=== PATIENT | male | born 1970 | race American Indian/Alaskan Native ===

== ENCOUNTER 2024-03-17 06:33 | Day surgery (SDC) | payer MEDICARE, MEDICAID, SELFPAY ==
--- NOTE | 2024-03-16 07:00 | EKG_ITS ---
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
[2024-03-16 14:31] VITALS: BMI 31.4
[2024-03-16 16:43] LABS: Basophils # (Auto) 0.1 Thou/mm3 (0.0-0.2); Basophils % (Auto) 1 % (0-2.5); Eosinophils # (Auto) 0.1 Thou/mm3 (0.0-0.5); Eosinophils % (Auto) 1 % (0-10); Hematocrit 42.4 % (41.0-53.0); Hemoglobin 14.8 g/dL (13.5-16.0); Immature Granulocytes % (Auto) 1 % (0-0); Immature Granulocytes Auto 0.05 Thou/mm3 (0.00-0.00); Lymphocytes # (Auto) 1.7 Thou/mm3 (1.0-4.8); Lymphocytes % (Auto) 16 % (10-50); Mean Corpuscular HGB Conc 34.9 g/dl (31.0-37.0); Mean Corpuscular Hemoglobin 30.8 pg (25.0-35.0); Mean Corpuscular Volume 88 fL (80-100); Monocytes # (Auto) 0.9 Thou/mm3 (0.0-0.8); Monocytes % (Auto) 8 % (0-12); Neutrophils # (Auto) 7.9 Thou/mm3 (1.8-7.7); Neutrophils % (Auto) 74 % (37-80); Nucleated Red Blood Cell % 0 /100 WBC (0); Platelet Count 256 Thou/mm3 (140-440); RDW Standard Deviation 41.5 fL (35.1-43.9); Red Blood Count 4.81 Miln/mm3 (4.50-5.90); White Blood Count 10.7 Thou/mm3 (3.8-10.6)
[2024-03-16 17:03] LABS: Partial Thromboplastin Time 27.6 Seconds (22.0-36.0); Prothrombin Time 10.8 Seconds (9.0-12.2)
[2024-03-16 17:14] LABS: Anion Gap 9 (7-16); BUN/Creatinine Ratio 15 Ratio (12-20); Blood Urea Nitrogen 23 mg/dL (9-23); Calcium 9.5 mg/dL (8.3-10.6); Carbon Dioxide 25.5 mMol/L (20.0-31.0); Chloride 104 mMol/L (98-107); Creatinine (Component) 1.5 mg/dL (0.6-1.3); Estimated Creatinine Clearance 66.1 mL/min (>60); Glucose 161 mg/dL (74-106); Osmolality,Calculated 282 (275-295); Potassium 4.6 mMol/L (3.4-5.1); Sodium 138 mMol/L (136-145); eGFR 56 See Note
[2024-03-17] VITALS (12 sets, daily range): BP systolic 95–146; BP diastolic 65–91; PULSE 68–75; RESP 14–18; TEMP 36.7–36.8; O2SAT 94–97; BMI 30.9
[2024-03-17] MEDS: DIAZEPAM 5 MG TABLET PO (07:20)
[2024-03-17] MEDS: SODIUM CHLORIDE 0.45 % 500 ML 100 ML IV (07:47)
--- NOTE | 2024-03-17 08:43 | ESOP_ITS ---
Cardiac Cath Procedure Procedure Narrative Date of the procedure 03/17/2024 Title of the procedure 1. Left heart catheterization 2. Left coronary angiogram 3. Right coronary angiogram 4. Left ventriculogram 5. Conscious sedation 6. Radiographic interpretation supervision 7. Ultrasound guidance for Right radial access Indication for the procedure This is a 53-year-old gentleman with hypertension diabetes hyperlipidemia obesity Patient was complaining of atypical chest pain Patient did undergo Cardiolite scan which was abnormal Cardiac catheterization cholangiogram recommended Procedure This is done in the cardiac lab under continuous electrocardiographic monitoring Intermittent blood pressure monitoring right radial arterial access obtained using modified Seldinger technique 6 Bulgarian radial sheath was placed under ultrasound guidence TIG catheter was used for selective injection of the Left coronary artery TIG cather was used for selective injection of the Right coroanry artery TIG cather was used for LV gram Findings Hemodynamics Left ventricular systolic function is 55% Left ventricular end-diastolic pressure is 18 mmHg Gradient across the aortic valve is 0 mm gradient Coronary anatomy Right normal dominance Left main coronary artery is Left anterior descending artery is distally 90% lesion Diagonal vessel is luminal regularities Left circumflex artery shows luminal irregularities Obtuse marginal vessel shows 90% lesion Right coronary artery proximally 70% lesion Posterior descending artery is luminal irregularities Conclusion Significant three-vessel disease in a diabetic patient Recommendation Cardiothoracic surgical consultation
== END 2024-03-17 11:50 | disposition home or self-care (01) ==
PROVIDERS: PCP Family Medicine; Referring Provider Internal Medicine; Visit Provider Internal Medicine
PROC: (CPT 93458; principal; 2024-03-17 07:30)
DX: I25.118 Atherosclerotic heart disease of native coronary artery with other forms of angina pectoris (principal); E11.9 Type 2 diabetes mellitus without complications; E66.9 Obesity, unspecified; E78.5 Hyperlipidemia, unspecified; I10 Essential (primary) hypertension; Z68.30 Body mass index [BMI] 30.0-30.9, adult
CPT/HCPCS: 93458; 36415; 80048; 85025; 85610; 85730; 93005; 99152; 99153; A4216; A4649; C1769; C1887; C1894; J0171; J0461; J0583; J1643; J2250; J2310; J2371; J3010; J3490; J7030; Q9967; A9270; J2305

== ENCOUNTER 2024-05-26 00:17 | Emergency (ER) | payer MEDICARE, MEDICAID, SELFPAY ==
[2024-05-26] VITALS (7 sets, daily range): BP systolic 144–181; BP diastolic 80–101; PULSE 95–99; RESP 17–98; TEMP 36.7–37.2; O2SAT 96–100; BMI 16.7
--- NOTE | 2024-05-26 00:20 | EKG_ITS ---
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: : 1970 Requested By: ED Temporary Provider Order Number: [id number] Reading MD: ED Temporary Provider Measurements Intervals [place] Rate: 93 P: 20 MA: 187 QRS: -42 QRSD: 111 T: 103 QT: 355 QTc: 443 Interpretive Statements SINUS RHYTHM POSSIBLE LEFT ATRIAL ENLARGEMENT [-0.1mV P-WAVE IN V1/V2] LEFT AXIS DEVIATION [QRS AXIS < -30] LATERAL MYOCARDIAL INFARCTION , OF INDETERMINATE AGE [40+ ms Q WAVE AND/OR ST/T ABNORMALITY IN I/aVL/V5/V6] Compared to ECG 03/16/2024 15:51:23 Myocardial infarct finding now present Intraventricular conduction delay no longer present /store/S0/[id number]/[id number].pdf
--- NOTE | 2024-05-26 00:39 | XR_ITS ---
Examination: PA chest single view TECHNIQUE: Upright PA chest single view Exam date and time: May 26, 2024 0112 hours Comparison June 15, 2023 INDICATIONS: Coughing shortness of breath today. FINDINGS: Bibasilar pneumonia, significant left base Normal heart size CABG Suspicious for small to moderate left pleural effusion IMPRESSION: Bibasilar pneumonia, significant left base
--- NOTE | 2024-05-26 00:40 | PD.EDRME ---
Rapid Medical Screening Exam RME Arrival date/time: 05/26/24 00:17 54M with history of recent CABG and DM (LLE amputation) presents to ED with several days of cough, CP, and SOB, as well as some N/V. Chief Complaint: Nausea/Vomiting/Diarrhea Vital signs: Vital Signs Temperature 98.6 F 05/26/24 00:33 Pulse Rate 97 05/26/24 00:33 Respiratory Rate 19 05/26/24 00:33 Blood Pressure 144/80 H 05/26/24 00:33 Pulse Oximetry (%) 98 05/26/24 00:33 Oxygen Delivery Method Room Air 05/26/24 00:33
[2024-05-26 01:13] LABS: Basophils # (Auto) 0.1 Thou/mm3 (0.0-0.2); Basophils % (Auto) 1 % (0-2.5); Eosinophils # (Auto) 0.1 Thou/mm3 (0.0-0.5); Eosinophils % (Auto) 1 % (0-10); Hematocrit 36.4 % (41.0-53.0); Hemoglobin 11.8 g/dL (13.5-16.0); Immature Granulocytes % (Auto) 0 % (0-0); Immature Granulocytes Auto 0.02 Thou/mm3 (0.00-0.00); Lymphocytes # (Auto) 1.4 Thou/mm3 (1.0-4.8); Lymphocytes % (Auto) 14 % (10-50); Mean Corpuscular HGB Conc 32.4 g/dl (31.0-37.0); Mean Corpuscular Volume 93 fL (80-100); Monocytes # (Auto) 0.9 Thou/mm3 (0.0-0.8); Monocytes % (Auto) 9 % (0-12); Neutrophils # (Auto) 7.4 Thou/mm3 (1.8-7.7); Neutrophils % (Auto) 76 % (37-80); Nucleated Red Blood Cell % 0 /100 WBC (0); Platelet Count 450 Thou/mm3 (140-440); RDW Standard Deviation 52.3 fL (35.1-43.9); Red Blood Count 3.93 Miln/mm3 (4.50-5.90); White Blood Count 9.7 Thou/mm3 (3.8-10.6)
[2024-05-26 01:47] LABS: Alanine Aminotransferase 10 U/L (10-49); Albumin, Serum 4.4 gm/dL (3.5-5.0); Albumin/Globulin Ratio 1.2 (1.2-2.2); Alkaline Phosphatase 129 U/L (46-116); Anion Gap 10 (7-16); Aspartate Amino Transferase 20 U/L (0-34); BUN/Creatinine Ratio 12 Ratio (12-20); Bilirubin,Total 0.7 mg/dL (0.3-1.2); Blood Urea Nitrogen 19 mg/dL (9-23); Carbon Dioxide 20.5 mMol/L (20.0-31.0); Chloride 108 mMol/L (98-107); Creatinine (Component) 1.6 mg/dL (0.6-1.3); Estimated Creatinine Clearance 38.7 mL/min (>60); Globulin 3.8 gm/dL (2.3-3.5); Glucose 88 mg/dL (74-106); Osmolality,Calculated 276 (275-295); Potassium 4.5 mMol/L (3.4-5.1); Procalcitonin 0.05 ng/ml (0.0-0.49); Sodium 138 mMol/L (136-145); Total Protein 8.2 gm/dL (5.7-8.2); eGFR 51 See Note
[2024-05-26 01:51] LABS: Troponin I 0.125 ng/mL (0.0-0.045)
--- NOTE | 2024-05-26 03:27 | XR_ITS ---
Examination: CTA chest with intravenous contrast 2-D reconstructions 3-D reconstructions, vascular Date and time of exam: May 26, 2024 0502 hours INDICATIONS: Shortness of breath vomiting today, cardiac bypass surgery May 09, 2024, wide mediastinum on chest x-ray CTDI: vol (mGy) 13.3 DLP: (mGycm) 514 Technique: Multiple axial sections of the thorax have been obtained. 3 mm slice thickness, from below the hemidiaphragms to above the apices of the lungs. Mediastinal and lung density settings have been obtained. 2-D sagittal and coronal reconstructions. 3-D angiographic renderings, 3-D volume renderings, 3D post processing, vascular maximum intensity projections obtained. Contrast administered is 100 cc Isovue 370. Low dose protocols were performed. One or more of the following dose reduction techniques were used; automated exposure control, adjustment of the mA and/or KV according to patient size, use of iterative reconstruction technique. Findings: Postoperative change in the anterior mediastinum No thoracic aortic aneurysm dilatation Pulmonary artery segments are not enlarged No pulmonary artery filling defects 8 mm pulmonary nodule right mid lung image 65 Pneumonia left base with a mild to moderate left pleural fluid Fluid distended esophagus with thickening of the lower wall of the esophagus No focal liver or splenic lesions No gallstones. Perinephric stranding Abdominal aorta intact IMPRESSION: Postoperative changes in the anterior mediastinum No thoracic aortic aneurysmal dilatation Negative for pulmonary artery emboli 8 mm pulmonary nodule right upper lobe Pneumonia and atelectasis left base with mild to moderate left pleural fluid Fluid distended esophagus with thickening of the lower wall of the esophagus
[2024-05-26 03:48] LABS: INR 1.1 (0.9-1.3); Partial Thromboplastin Time 31.4 Seconds (22.0-36.0); Prothrombin Time 11.8 Seconds (9.0-12.2)
[2024-05-26 04:24] LABS: Magnesium 1.8 mg/dL (1.6-2.6)
[2024-05-26 04:25] LABS: B-Type Natriuretic Peptide 280 pg/mL (0-100)
--- NOTE | 2024-05-26 04:51 | PD.EDNV ---
Nausea/Vomit./Diarrhea-RME/HPI General Chief complaint: Nausea/Vomiting/Diarrhea Stated complaint: SOB/ VOMITING/ BYPASS SURGERY 05/09 Arrival date/time: 05/26/24 00:17 RME / HPI RME / HPI Narrative: 05/26/24 00:17 54M with history of recent CABG and DM (LLE amputation) presents to ED with several days of cough, CP, and SOB, as well as some N/V. Dr. Mcgraw?s Main ED Evaluation: 54yo male with a [facility] of [facility] ([facility]), DM, HTN presents to the ED for a chief complaint of N/V. Patient states he's been having heartburn that radiates to his back, a cough for the last 1 week, N/V, and chest pain. He denies any fever, chills or any other associated symptoms. No known allergies. Related Data Home Medications ?Medication ?Instructions ?Recorded ?Confirmed atorvastatin 20 mg tablet 40 mg PO QDAY 03/17/24 05/26/24 empagliflozin 25 mg tablet 25 mg PO QDAY 03/17/24 05/26/24 (Jardiance) furosemide 20 mg tablet 20 mg PO QDAY 03/17/24 05/26/24 lisinopril 10 mg tablet 40 mg PO QDAY 03/17/24 05/26/24 metformin 500 mg tablet 500 mg PO QDAY 03/17/24 05/26/24 Held on 03/17/24. Instructions: Resume on 03/20/24. hold metformin. may resume 03/20/24 ascorbic acid (vitamin C) 500 mg 1 g PO QDAY 05/26/24 05/26/24 tablet (Vitamin C) clopidogrel 75 mg tablet 75 mg PO HS 05/26/24 05/26/24 ferrous sulfate 325 mg (65 mg 325 mg PO BID 05/26/24 05/26/24 iron) tablet (FeroSul) folic acid 1 mg tablet 1 mg PO QDAY 05/26/24 05/26/24 midodrine 10 mg tablet 10 mg PO TID 05/26/24 05/26/24 tramadol 50 mg tablet 50 mg PO HS 05/26/24 05/26/24 Previous Rx's ?Medication ?Instructions ?Recorded flash glucose scanning reader #1 ea 03/17/24 (FreeStyle Yolanda 2 [place]) flash glucose sensor (FreeStyle #1 ea 03/17/24 Yolanda 2 Sensor kit) pen needle, diabetic 29 gauge #100 ea 03/17/24 Allergies Allergy/AdvReac Type Severity Reaction Status Date / Time No Known Allergies Allergy Verified 05/22/23 15:18 Review of Systems Review of Systems Systems Reviewed: All systems reviewed, normal except as documented Past Medical History Past Medical History NEUROLOGIC: Positive Neurological Disorders and Peripheral Neuropathy; Negative Seizures CARDIAC: Positive Hypercholesterolemia and Hypertension; Negative Cardiac Disorders, Congestive Heart Failure, Edema or Cellulitis RESPIRATORY: Positive Pneumonia (05/2023); Negative Chronic Obstructive Pulmonary Disease (COPD), Asthma, Tuberculosis or Sleep Apnea GASTROINTESTINAL: Negative Gastrointestinal Disorders or Hepatitis GENITOURINARY: Negative Genitourinary Disorders or Renal Disease REPRODUCTIVE: Negative Breast Cancer MUSCULOSKELETAL: Positive Musculoskeletal Disorders and Fractures (right ankle fractures, screws intact) ENT: Positive Cataracts ENDOCRINE: Positive Endocrine Disorders and Diabetes Mellitus Type 2; Negative Diabetes Mellitus Type 1 HEMATOLOGIC: Negative Blood Disorders or Sickle Cell Disease OTHER HISTORY: Positive Shingles, Falls and Chicken Pox; Negative Hospitalization, Autoimmune Disease, Blood Transfusions, Blood Transfusion Reaction, Anesthesia Reactions, Chemotherapy, Radiation Therapy, MRSA, Measles, Mumps, Clostridium Difficile, Cancer or Breast Cancer Family History FAMILY HISTORY: Positive Family Cardiac Disorders, Family Gastrointestinal Problems and Family Surgery; Negative Family Psychiatric Problems, Family Respiratory Disorders, Family Cancer or Family Anesthesia Reaction Surgical History SURGICAL: Positive Amputation (right 3rd and 4th toes. 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 HEENT: Normocephalic, atraumatic; pupils equal, round, reactive to light; EOMI; mucous membranes pink, moist; oropharynx clear NECK: Supple LUNGS: fine rales and rhonchi bilaterally (L>R), no wheezes; tachypneic HEART: Tachycardic, regular rhythm; normal S1, S2; no murmurs ABDOMEN: non distended; normal BS; soft, no tenderness, no guarding, no rebound; no masses, no organomegaly, no hernia BACK: no CVA tenderness EXTREMITIES: atraumatic; no edema NEUROLOGIC: awake; alert and oriented x4; cranial nerves II-XII grossly intact; no focal sensory or motor deficits PSYCHIATRIC: appropriate mood and affect SKIN: warm, dry, normal color; no rashes Course Quality Measures none Orders Category Date Time Status Bedside COVID-19 Antigen Test NOW Care 05/26/24 00:40 Active Bedside Influenza A&B Antigen Test NOW Care 05/26/24 00:[address] Screening NOW Care 05/26/24 03:28 Active 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 Operator STAT Care 05/26/24 03:29 Active Continuous Pulse Oximetry ONCE Care 05/26/24 03:29 Active EKG (ED ONLY) *Do not use* NOW Care 05/26/24 00:20 Completed EKG (ED ONLY) *Do not use* NOW Care 05/26/24 05:33 Active IV [Insert IV] NOW Care 05/26/24 03:[address] angio chest Stat Exams 05/26/24 03:27 Taken EKG (ED Only) Stat Exams 05/26/24 00:20 Draft EKG (ED Only) Stat Exams 05/26/24 05:33 Draft XR chest 1V portable Stat Exams 05/26/24 00:39 Taken B-Type Natriuretic Peptide Stat Lab 05/26/24 00:52 Completed CBC Stat Lab 05/26/24 00:52 Completed Comprehensive Metabolic Panel Stat Lab 05/26/24 00:52 Completed Drug Screen,Urine Stat Lab 05/26/24 05:37 Ordered Magnesium Stat Lab 05/26/24 03:22 Completed Occult Blood, Gastric (LAB) Stat Lab 05/26/24 05:05 Ordered Partial Thromboplastin Time Stat Lab 05/26/24 00:52 Completed Procalcitonin Stat Lab 05/26/24 00:52 Completed Prothrombin Time with INR Stat Lab 05/26/24 00:52 Completed Troponin I Stat Lab 05/26/24 00:52 Completed Troponin I Stat Lab 05/26/24 03:22 Completed Type and Screen Stat Lab 05/26/24 05:34 Ordered Famotidine Inj [Pepcid Inj] Med 05/26/24 05:28 Discontinued 20 mg IVP X1 ONE Nitroglycerin Oint 2% [Nitro-paste Oint 2%] Med 05/26/24 05:34 Discontinued 1 inch TOP X1 ONE Pantoprazole Inj [Protonix Inj] Med 05/26/24 05:28 Discontinued 80 mg IVP X1 ONE mg Hyd/Al Hyd/Km Susp [Maalox Susp] Med 05/26/24 05:26 Discontinued 30 ml PO X1 ONE Oxygen Delivery NOW RT 05/26/24 03:29 Active Vital Signs Vital signs: Vital Signs Temperature 98.6 F 05/26/24 00:33 Pulse Rate 97 05/26/24 00:33 Respiratory Rate 19 05/26/24 00:33 Blood Pressure 144/80 H 05/26/24 00:33 Pulse Oximetry (%) 98 05/26/24 00:33 Oxygen Delivery Method Room Air 05/26/24 00:33 Nausea/Vomiting/Diarrhea MDM Narrative MDM Narrative:: Scribe Attestation: 05/26/24 - Mary Landrum am scribing for and in the presence of Dr. Mcgraw. Patient began vomiting. Gastric occult was positive. 0600: Care signed out to Dr. Fallon (emergency physician). Past medical, surgical, social and family history reviewed. Vitals and home medications reviewed. Results and treatment plan discussed. They will assume the care of the patient at this time and will follow the patient, pending CTA of the chest. Patient data External records reviewed:: [facility] previous records (Per chart review, patient was admitted here on 06/13/23 for bilateral pulmonary infiltrates.) Clinical information provided by:: patient Social determinants that could affect healthcare access:: none Patient has the following chronic illnesses:: HTN, DM How is presenting disease/condition affected by chronic disease/condition?: uneffected by Evaluation data The following diagnostics were reviewed and interpreted by me:: lab results, radiology exam(s) and EKG tracing(s) Lab and/or radiology exams considered but not ordered:: none Interpretation Summary: CBC is normal, PT and INR are normal, PTT is normal, Creatinine is 1.6, Troponin is elevated at 0.120, BNP is 280, Procalcitonin is normal, according to my interpretation. CXR shows prior sternotomy, widened mediastinum, left pleural effusion, possible left lower lobe infiltrate, according to my interpretation. EKG done at 0030, NSR, rate of 93, left axis deviation, no ectopy, Q waves in leads avL, lead II, V5, and V6, QRS: 111, QTc: 406, inverted T waves in avL, no STEMI, according to my interpretation. EKG done at 0537, NSR, rate of 99, left axis deviation, no ectopy, T-wave inversion in avL, no STEMI, according to my interpretation. Medications / Prescriptions Medications / Prescriptions considered but not ordered:: none Medication administrations:: Medication Administration History Discontinued Medications Al Hydrox/Mg Hydrox/Simethicone (Mg Hyd/Al Hyd/Km (Maalox Reg) Susp 30 Ml Udc) 30 ml PO X1 ONE Stop: 05/26/24 05:27 Famotidine (Famotidine Inj 10 Mg/Ml Vial 2 Ml) 20 mg IVP X1 ONE Stop: 05/26/24 05:29 Nitroglycerin (Nitroglycerin Oint 2% 1 Inch Packet) 1 inch TOP X1 ONE Stop: 05/26/24 05:35 Pantoprazole Sodium (Pantoprazole Inj 40 Mg Vial) 80 mg IVP X1 ONE Stop: 05/26/24 05:29 see above Consultations Consultation(s) initiated? (list below): No Diagnosis Nausea Differential Diagnosis: gastroenteritis and other (STEMI, NSTEMI, pulmonary embolism, sepsis, gastritis, variceles, bleeding) Most likely diagnosis given after review of the tests above:: see clinical impression below Admission Indicated Admission indicated?: not indicated Admission Request Was there a request for admission?: No Disposition Plan Disposition Plan: other (specify) (Signed out to Dr. Fallon at 0600 pending CTA of the chest.) Discharge Plan Prescriptions/Referrals Prescriptions/Med Rec: No Action metformin 500 mg Tablet 500 mg PO QDAY atorvastatin 20 mg Tablet 40 mg PO QDAY furosemide 20 mg Tablet 20 mg PO QDAY Jardiance 25 mg Tablet 25 mg PO QDAY lisinopril 10 mg tablet 40 mg PO QDAY (DME) pen needle, diabetic 29 gauge needle See Rx Instructions .Route Qty: 100 0RF Rx Instructions: As directed (DME) FreeStyle Yolanda 2 Sensor Kit See Rx Instructions .Route Qty: 1 0RF Rx Instructions: As directed (DME) FreeStyle Yolanda 2 [place] Misc See Rx Instructions .Route Qty: 1 0RF Rx Instructions: As directed ferrous sulfate [FeroSul] 325 mg (65 mg iron) tablet 325 mg PO BID ascorbic acid (vitamin C) [Vitamin C] 500 mg tablet 1 g PO QDAY tramadol 50 mg tablet 50 mg PO HS clopidogrel 75 mg tablet 75 mg PO HS midodrine 10 mg tablet 10 mg PO TID folic acid 1 mg tablet 1 mg PO QDAY Referrals: Jared Walker PA-C [Primary Care Provider] - In 1 week Problem List Clinical Impression: Cellulitis Patient/Caregiver Discharge Instructions Print Language: Peruvian
--- NOTE | 2024-05-26 05:33 | EKG_ITS ---
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
[2024-05-26] MEDS: FAMOTIDINE INJ 10 MG/ML VIAL 2 ML 20 MG IVP (05:39)
[2024-05-26] MEDS: PANTOPRAZOLE INJ 40 MG VIAL 80 MG IVP (05:40)
[2024-05-26] MEDS: MG HYD/AL HYD/SIME (Maalox Reg) SUSP 30 ML UDC PO (05:40)
[2024-05-26] MEDS: NITROGLYCERIN OINT 2% 1 INCH PACKET TOP (05:41)
[2024-05-26 05:51] LABS: OBG Card Lot # 20632; OBG Developer Lot # 75003g; OBG Performed By orpiw2; OBG QC OK? Yes
[2024-05-26 06:06] LABS: Occult Blood, Gastric Positive (Negative)
--- NOTE | 2024-05-26 06:10 | PC.NURSE ---
PT ACCEPTED [facility] RM [address] ARVIZU, REPORT #[id number]
--- NOTE | 2024-05-26 06:11 | PRELIM_ITS ---
CT angiogram of the chest with intravenous contrast (axial sections with sagittal and coronal reformats) May 26, 2024 at 0502 hours Clinical History: Wide mediastinum. Technique:Helical axial sections with sagittal and coronal reformats of the chest were obtained with intravenous contrast. Iterative reconstruction technique was employed to reduce patient radiation exposure. 3D/MIP reconstructed images were also provided. Comparison: No prior study is available for comparison. Findings: There is no filling defect within the pulmonary artery divisions to suggest pulmonary thromboembolism. There are few prominent mediastinal lymph nodes. The thoracic aorta demonstrates atheromatous calcification without evidence of aneurysm. Coronary artery calcification is noted. There is a trace pericardial effusion. There is a 6 mm fissural nodule in the right upper lobe. There is a moderate left pleural effusion with compressive atelectasis. No evidence of pneumothorax. Degenerative changes are identified in the spine. Median sternotomy wires are identified. A small hiatal hernia is present. There is thickening of the wall of the distal esophagus. There is a fluid in the esophagus, which may represent reflux esophagitis. Nonspecific perinephric fat stranding is noted bilaterally. Impression: 1. No CT evidence of pulmonary thromboembolism . 2. Left moderate pleural effusion with compressive atelectasis 3. Other findings as described above. Report Electronically Signed By: Bahman Richardson 05/26/2024 6:11:06 AM [EST]
--- NOTE | 2024-05-26 06:11 | PD.EDADDENDU ---
Emergency Room Addendum Addendum Narrative: 0600: Care assumed from Dr. Mcgraw, the previous shift emergency physician. Past medical, surgical, social and family history reviewed. Vitals and home medications reviewed. I will assume the care of the patient at this time pending CTA of chest. Please refer to them emergency department record for history and examination from initial visit.?The following addendum documentation note is intended to reflect any pending information, findings, or radiology results not included in the patient?s initial chart. 0611: Dr. Mcgraw spoke with Dr. Real, the on-call doctor for Dr. Ambrose. Patient has been accepted for transfer at [facility]. 0654: EMS here to transfer patient.
--- NOTE | 2024-05-26 06:29 | PC.NURSE ---
Report Given to JEN Terry at [facility]
== END 2024-05-26 06:55 | disposition short-term general hospital (02) ==
PROVIDERS: Physician Assistant; Emergency Provider Emergency Medicine; PCP Family Medicine
DX: L03.90 Cellulitis, unspecified (principal); R06.02 Shortness of breath; R05.9 Cough, unspecified; R07.9 Chest pain, unspecified; E11.9 Type 2 diabetes mellitus without complications; I10 Essential (primary) hypertension; Z95.1 Presence of aortocoronary bypass graft; R11.2 Nausea with vomiting, unspecified
CPT/HCPCS: 36415; 71045; 71275; 80053; 80307; 82271; 83735; 83880; 84145; 84484; 85025; 85610; 85730; 86850; 86900; 86901; 87400; 87811; 93005; 96374; 96375; 99285; A4649; J2470; J3490; Q9967; A9270

== ENCOUNTER 2024-05-30 18:10 | Emergency (ER) | payer MEDICARE, MEDICAID, SELFPAY ==
[2024-05-30 18:12] VITALS: BMI 15.5
[2024-05-30 18:48] VITALS: BP 110/67; PULSE 86; RESP 16; TEMP 37; O2SAT 98
--- NOTE | 2024-05-30 19:00 | EKG_ITS ---
[facility] Test Date: 2024-05-30 Pat Name: LILIANA HOSKINS Department: Room: - Gender: Male Bearingizer: : 1970 Requested By: Cole Young Order Number: [id number] Reading MD: Cole Young Measurements Intervals [place] Rate: 86 P: 9 GA: 199 QRS: -38 QRSD: 116 T: 109 QT: 376 QTc: 450 Interpretive Statements SINUS RHYTHM LEFT AXIS DEVIATION [QRS AXIS < -30] PROBABLE LATERAL MYOCARDIAL INFARCTION , OF INDETERMINATE AGE [35 ms Q WAVE IN I/aVL/V5/V6] Compared to ECG 05/26/2024 05:39:50 No significant changes /store/S0/[id number].pdf
--- NOTE | 2024-05-30 19:00 | XR_ITS ---
Examination: PA lateral chest 2 views Technique: Upright PA lateral chest 2 views Exam date and time: May 30, 2024, 1912 hrs. Comparison May 26, 2024 Indications: Shortness of breath difficulty breathing 4 days, pneumonia on chest film May 26, 2024 Findings: Persistent left base pneumonia with moderate left pleural fluid Mild enlargement cardiac contour CABG Impression: Significant left base pneumonia remains
--- NOTE | 2024-05-30 19:05 | PD.EDSOB ---
ED SOB =RME/HPI General Chief Complaint: Shortness of Breath/Dyspnea Stated Complaint: SOB X5 DAYS Time Seen by Provider: 05/30/24 18:33 Arrival date/time: 05/30/24 18:10 Limitations: no limitations RME / HPI RME / HPI Narrative: 54-year-old male with past medical history of diabetes, left BKA, hypertension, CHF, and recent CABG (05/[address] Ambrose) presents for evaluation of shortness of breath x 5 days. Patient endorses productive cough and multiple episodes of hemoptysis today. Patient reports persistent substernal chest aching that has slightly improved since his procedure last month. Denies radiation of pain. Denies abdominal pain, nausea, vomiting, hematochezia, hematic emesis. Related Data Home Medications ?Medication ?Instructions ?Recorded ?Confirmed atorvastatin 20 mg tablet 40 mg PO QDAY 03/17/24 05/26/24 empagliflozin 25 mg tablet 25 mg PO QDAY 03/17/24 05/26/24 (Jardiance) furosemide 20 mg tablet 20 mg PO QDAY 03/17/24 05/26/24 lisinopril 10 mg tablet 40 mg PO QDAY 03/17/24 05/26/24 metformin 500 mg tablet 500 mg PO QDAY 03/17/24 05/26/24 Held on 03/17/24. Instructions: Resume on 03/20/24. hold metformin. may resume 03/20/24 ascorbic acid (vitamin C) 500 mg 1 g PO QDAY 05/26/24 05/26/24 tablet (Vitamin C) clopidogrel 75 mg tablet 75 mg PO HS 05/26/24 05/26/24 ferrous sulfate 325 mg (65 mg 325 mg PO BID 05/26/24 05/26/24 iron) tablet (FeroSul) folic acid 1 mg tablet 1 mg PO QDAY 05/26/24 05/26/24 midodrine 10 mg tablet 10 mg PO TID 05/26/24 05/26/24 tramadol 50 mg tablet 50 mg PO HS 05/26/24 05/26/24 Previous Rx's ?Medication ?Instructions ?Recorded flash glucose scanning reader #1 ea 03/17/24 (FreeStyle Yolanda 2 [place]) flash glucose sensor (FreeStyle #1 ea 03/17/24 Yolanda 2 Sensor kit) pen needle, diabetic 29 gauge #100 ea 03/17/24 amoxicillin 875 mg-potassium 1 tab PO BID pneumonia 10 days #20 05/31/24 clavulanate 125 mg tablet tabs azithromycin 500 mg tablet 500 mg PO QDAY 10 days #10 tabs 05/31/24 doxycycline hyclate 100 mg capsule 100 mg PO BID #20 caps 06/04/24 Allergies Allergy/AdvReac Type Severity Reaction Status Date / Time No Known Allergies Allergy Verified 06/03/24 17:32 Review of Systems Constitutional Constitutional: Denies chills, Reports difficulty sleeping, Denies fatigue, Denies fever(s), Denies headache(s), Denies lethargy, Denies night sweats, Reports snoring, Reports stops breathing during sleep and Denies weakness Eyes Eyes: Denies blurry vision and Denies change in vision ENT Ears, Nose, Mouth, and Throat: Denies headache(s) and Denies neck pain Cardiovascular Cardiovascular: Denies chest pain, Denies chest pain at rest, Reports dyspnea, Denies edema, Denies irregular heart rhythm, Denies leg edema and Denies palpitations Respiratory Respiratory: Reports change in phlegm color, Reports cough, Reports dyspnea, Reports hemoptysis, Reports snoring and Denies wheezing Gastrointestinal Gastrointestinal: Denies abdominal pain, Denies nausea and Denies vomiting Musculoskeletal Musculoskeletal: Denies back pain, Denies neck pain and Denies tingling Integumentary/Breasts Skin/Breast: Denies skin pain and Denies wounds Neurologic Neurologic: Denies headache(s), Denies tingling and Denies weakness Endocrine Endocrine: Denies fatigue and Denies palpitations Allergic/Immunologic Allergic/Immunologic: Denies wheezing Past Medical History Past Medical History NEUROLOGIC: Positive Neurological Disorders and Peripheral Neuropathy; Negative Seizures CARDIAC: Positive Cardiac Disorders, Hypercholesterolemia and Hypertension; Negative Congestive Heart Failure, Edema or Cellulitis RESPIRATORY: Positive Pneumonia (05/2023); Negative Chronic Obstructive Pulmonary Disease (COPD), Asthma, Tuberculosis or Sleep Apnea GASTROINTESTINAL: Negative Gastrointestinal Disorders or Hepatitis GENITOURINARY: Negative Genitourinary Disorders or Renal Disease REPRODUCTIVE: Negative Breast Cancer MUSCULOSKELETAL: Positive Musculoskeletal Disorders and Fractures (right ankle fractures, screws intact) ENT: Positive Cataracts ENDOCRINE: Positive Endocrine Disorders and Diabetes Mellitus Type 2 (2 type of insulin, pills Pt can't remember); Negative Diabetes Mellitus Type 1 HEMATOLOGIC: Negative Blood Disorders or Sickle Cell Disease OTHER HISTORY: Positive Shingles, Falls and Chicken Pox; Negative Hospitalization, Autoimmune Disease, Blood Transfusions, Blood Transfusion Reaction, Anesthesia Reactions, Chemotherapy, Radiation Therapy, MRSA, Measles, Mumps, Clostridium Difficile, Cancer or Breast Cancer Family History FAMILY HISTORY: Positive Family Cardiac Disorders, Family Gastrointestinal Problems and Family Surgery; Negative Family Psychiatric Problems, Family Respiratory Disorders, Family Cancer or Family Anesthesia Reaction Surgical History SURGICAL: Positive Amputation (right 3rd and 4th toes. 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 ED Exam General Limitations: Present no limitations General appearance: Present alert and in no apparent distress Head Head exam: Present atraumatic and normocephalic Eye Eye exam: Present normal appearance and EOMI; Absent scleral icterus ENT ENT exam: Present normal oropharynx and mucous membranes moist Neck Neck exam: Present normal inspection and full ROM Chest Chest inspection: Present normal inspection and symmetric chest wall rise; Absent tenderness or rash Respiratory Respiratory exam: Absent respiratory distress or wheezes Expanded Respiratory Exam Location: Left: rhonchi Cardiovascular Cardiovascular exam: Present regular rate and +S1 Abdominal Exam Abdominal exam: Present soft; Absent distention Extremities Exam Extremities exam: Present normal inspection and full ROM Expanded Lower Extremity Exam Lower leg exam: Present other (left sided below the knee amputation. No pitting edema right lower extremity.) Back Exam Back exam: Present normal inspection and full ROM Neurological Exam Neurological exam: Present alert and normal gait Psychiatric Psychiatric exam: Present normal affect Skin Skin exam: Present warm and dry Course Quality Measures none Orders Category Date Time Status Bedside COVID-19 Antigen Test NOW Care 05/30/24 19:01 Completed Bedside Influenza A&B Antigen Test NOW Care 05/30/24 19:[address] Screening NOW Care 05/30/24 19:05 Completed EKG (ED ONLY) *Do not use* NOW Care 05/30/24 19:00 Completed EKG (ED Only) Stat Exams 05/30/24 19:00 Draft XR chest 2V Stat Exams 05/30/24 19:00 Completed B-Type Natriuretic Peptide Stat Lab 05/30/24 19:40 Completed CBC Stat Lab 05/30/24 19:40 Completed Comprehensive Metabolic Panel Stat Lab 05/30/24 19:40 Completed Drug Screen,Urine Stat Lab 05/30/24 19:34 Completed Magnesium Stat Lab 05/30/24 19:40 Completed Partial Thromboplastin Time Stat Lab 05/30/24 19:40 Completed Prothrombin Time with INR Stat Lab 05/30/24 19:40 Completed Troponin I Stat Lab 05/30/24 19:40 Completed Troponin I Stat Lab 05/30/24 22:03 Completed Urinalysis Stat Lab 05/30/24 19:34 Completed Azithromycin Inj [Zithromax Inj] 500 mg Med 05/31/24 02:19 Discontinued Sodium Chloride 0.9% 250 ml [Ns] 250 ml IV X1 Pantoprazole [Protonix] Med 05/30/24 22:50 Discontinued 40 mg PO X1 ONE cefTRIAXone/D5w 1gm IV premix [Rocephin/D5w 1gm IV Med 05/31/24 02:19 Discontinued premix] 1 gm in 50 ml IV X1 Vital Signs Vital signs: Vital Signs Temperature 98.6 F 05/30/24 18:48 Pulse Rate 86 05/30/24 18:48 Respiratory Rate 16 05/30/24 18:48 Blood Pressure 110/67 05/30/24 18:48 Pulse Oximetry (%) 98 05/30/24 18:48 Oxygen Delivery Method Room Air 05/30/24 18:48 Pulse ox 98% on room air, within normal limits. Shortness of Breath / Dyspnea MDM Narrative MDM Narrative:: 54-year-old male with complicated past medical history to include CABG last month presents for evaluation of worsening dyspnea. Vital signs reassuring. Initially I ordered a CT chest to better evaluate for possible PE or pleural effusion, however given CT machine was down and unfortunate delay in care in the ED I discussed the case with Dr. Salinas who advised that since the patient had been seen in the ED several days ago and had a CT chest perfromed at that time no need to repeat today. No recurrence of report to hemoptysis while in the department. Persistent area of consolidation in left lower lobe, possibly representing pneumonia or pleural effusion. Patient's BNP was not elevated today therefore less concern for CHF exacerbation at this time. I stressed the patient needs to continue to take his Lasix as prescribed or his symptoms will likely worsen. Unfortunately CT chest unavailable within a timely manner to further evaluate and differentiate today. Ultimately the patient was treated for pneumonia with plan to follow closely with primary care for further evaluation and treatment. He was given a dose of IV antibiotics in the department and discharged with prescription for Augmentin and azithromycin. I stressed that he needs to come back to the ED if his symptoms worsen or change. Patient data External records reviewed:: [facility] previous records Clinical information provided by:: patient Social determinants that could affect healthcare access:: none Patient has the following chronic illnesses:: Hypertension, diabetes, CKD, CHF. How is presenting disease/condition affected by chronic disease/condition?: exacerbated by Evaluation data The following diagnostics were reviewed and interpreted by me:: lab results, radiology exam(s) and EKG tracing(s) Lab and/or radiology exams considered but not ordered:: CT chest considered not ordered given limitations due to technical difficulties which delayed care within the ED. Interpretation Summary: Left-sided pneumonia on chest x-ray. Troponin elevated likely due to recent cardiac procedure. Repeat troponin somewhat decreased. No leukocytosis on CBC or evidence of gross hemorrhage requiring emergent transfusion. Renal insufficiency which appears to be chronic in nature. Medications / Prescriptions Medications or Prescriptions considered but not ordered:: Rx given. Medication administrations:: Medication Administration History Discontinued Medications Ceftriaxone Sodium/Dextrose (Rocephin/D5w 1gm Iv Premix) 1 gm in 50 mls @ 100 mls/hr IV X1 ONE Stop: 05/31/24 02:48 Last Admin: 05/31/24 03:07 Dose: 100 mls/hr Documented By: LANA Azithromycin 500 mg/ Sodium (Chloride) 250 mls @ 250 mls/hr IV X1 ONE Stop: 05/31/24 03:18 Last Admin: 05/31/24 03:29 Dose: 250 mls/hr Documented By: LANA Pantoprazole Sodium (Pantoprazole 40 Mg Tablet) 40 mg PO X1 ONE Stop: 05/30/24 22:51 Last Admin: 05/30/24 23:09 Dose: 40 mg Documented By: LINO Rx given. Consultations Consultation(s) initiated? (list below): No Diagnosis Shortness of Breath Differential Diagnosis: acute exacerbation of chronic obstructive airways disease, congestive heart failure, community acquired pneumonia, pulmonary embolism and other (Pleural effusion.) Most likely diagnosis given after review of the tests above:: Pneumonia. Dyspnea. Admission Indicated Admission indicated?: not indicated Admission Request Was there a request for admission?: No Disposition Plan Disposition Plan: Discharge Discharge Attestation Discharge Attestation: The patient and all family members were given an opportunity to ask questions and understood the discharge instructions. Discharge instructions specifically effects, indications for sooner follow up or return to the emergency department, and the expected course of current diagnosis. Patient condition: Stable Discharge Plan Plan Patient Disposition: HOME (Self Care) Disposition Comment: stable Prescriptions/Referrals Prescriptions/Med Rec: New amoxicillin-pot clavulanate 875-125 mg tablet 1 tab PO BID 10 Days Qty: 20 0RF azithromycin 500 mg tablet 500 mg PO QDAY 10 Days Qty: 10 0RF No Action metformin 500 mg Tablet 500 mg PO QDAY atorvastatin 20 mg Tablet 40 mg PO QDAY furosemide 20 mg Tablet 20 mg PO QDAY Jardiance 25 mg Tablet 25 mg PO QDAY lisinopril 10 mg tablet 40 mg PO QDAY (DME) pen needle, diabetic 29 gauge needle See Rx Instructions .Route Qty: 100 0RF Rx Instructions: As directed (DME) FreeStyle Yolanda 2 Sensor Kit See Rx Instructions .Route Qty: 1 0RF Rx Instructions: As directed (DME) FreeStyle Yolanda 2 [place] Misc See Rx Instructions .Route Qty: 1 0RF Rx Instructions: As directed ferrous sulfate [FeroSul] 325 mg (65 mg iron) tablet 325 mg PO BID ascorbic acid (vitamin C) [Vitamin C] 500 mg tablet 1 g PO QDAY tramadol 50 mg tablet 50 mg PO HS clopidogrel 75 mg tablet 75 mg PO HS midodrine 10 mg tablet 10 mg PO TID folic acid 1 mg tablet 1 mg PO QDAY doxycycline hyclate 100 mg capsule 100 mg PO BID Qty: 20 0RF Referrals: Jared Walker PA-C [Primary Care Provider] - In 1 week Problem List Clinical Impression: Pneumonia, Elevated troponin, Elevated brain natriuretic peptide (BNP) level, Dyspnea Impression comment: Follow-up with Dr. Comer as planned today at 230pm. Continue to take Lasix and other prescriptions as prescribed. Take Augmentin twice daily for the next x 10 days for pneumonia. Take azithromycin once daily for the next x 10 days for pneumonia. Follow-up with primary care within the next week for reevaluation. Return to the ED if your symptoms worsen or change. Patient/Caregiver Discharge Instructions Education Materials: Chest Lung problems Surg Dx, ED Pneumonia (Adult) Print Language: Mauritian Stand Alone Forms: S*Bio Info., Patient Portal Info Letter PA/DIETARY AIDE TEACHER Supervising Physician PA/DIETARY AIDE TEACHER Supervising Physician: Dr. Salinas
[2024-05-30 19:52] LABS: Collection Type, Urine Clean Catch; Squamous Epithelial Cell,Urine 0 /hpf (0-5)
[2024-05-30 20:11] LABS: Bacteria,Urine Rare; Bilirubin,Urine Negative (Negative); Blood,Urine Negative (Negative); Clarity,Urine Clear (Clear/Hazy); Color,Urine Lt-Yellow (Lt Yel-Yel); Glucose, Urine 4+ (Negative); Ketones,Urine Negative (Negative); Leukocyte Esterase,Urine Negative (Negative); Nitrite,Urine Negative (Negative); PH,Urine 5.5 (5.0-7.0); Protein,Urine 2+ (Neg - Trace); RBC,Urine 2 /hpf (0-3); Specific Gravity,Urine 1.024 (1.001-1.035); Urobilinogen,Urine Negative mg/dL (0.0-1.0); WBC,Urine 2 /hpf (0-5)
[2024-05-30 20:12] LABS: Basophils # (Auto) 0.1 Thou/mm3 (0.0-0.2); Basophils % (Auto) 1 % (0-2.5); Eosinophils # (Auto) 0.1 Thou/mm3 (0.0-0.5); Eosinophils % (Auto) 2 % (0-10); Hemoglobin 11.5 g/dL (13.5-16.0); Immature Granulocytes % (Auto) 0 % (0-0); Immature Granulocytes Auto 0.01 Thou/mm3 (0.00-0.00); Lymphocytes # (Auto) 1.6 Thou/mm3 (1.0-4.8); Lymphocytes % (Auto) 27 % (10-50); Mean Corpuscular HGB Conc 33.8 g/dl (31.0-37.0); Mean Corpuscular Hemoglobin 30.6 pg (25.0-35.0); Mean Corpuscular Volume 90 fL (80-100); Monocytes # (Auto) 0.7 Thou/mm3 (0.0-0.8); Monocytes % (Auto) 11 % (0-12); Neutrophils # (Auto) 3.7 Thou/mm3 (1.8-7.7); Neutrophils % (Auto) 60 % (37-80); Nucleated Red Blood Cell % 0 /100 WBC (0); Platelet Count 354 Thou/mm3 (140-440); RDW Standard Deviation 49.6 fL (35.1-43.9); Red Blood Count 3.76 Miln/mm3 (4.50-5.90); White Blood Count 6.2 Thou/mm3 (3.8-10.6)
[2024-05-30 20:20] LABS: Amphetamine/Methamp Scrn,U Negative (Negative); Barbiturate Screen,Urine Negative (Negative); Benzodiazepines Screen,Urine Negative (Negative); Benzoylecgonine Screen, Ur Negative (Negative); Fentanyl Screen,Urine Negative (Negative); Opiate Screen,Urine Negative (Negative); THC Screen,Urine Negative (Negative)
[2024-05-30 20:26] LABS: Partial Thromboplastin Time 29.4 Seconds (22.0-36.0); Prothrombin Time 11.4 Seconds (9.0-12.2)
[2024-05-30 20:29] LABS: Alanine Aminotransferase 11 U/L (10-49); Albumin, Serum 4.3 gm/dL (3.5-5.0); Albumin/Globulin Ratio 1.2 (1.2-2.2); Alkaline Phosphatase 140 U/L (46-116); Anion Gap 9 (7-16); Aspartate Amino Transferase 21 U/L (0-34); B-Type Natriuretic Peptide 149 pg/mL (0-100); BUN/Creatinine Ratio 15 Ratio (12-20); Bilirubin,Total 0.6 mg/dL (0.3-1.2); Blood Urea Nitrogen 34 mg/dL (9-23); Calcium 8.9 mg/dL (8.3-10.6); Calcium (Corrected) 8.9 mg/dL (8.5-10.1); Carbon Dioxide 21.8 mMol/L (20.0-31.0); Chloride 103 mMol/L (98-107); Creatinine (Component) 2.3 mg/dL (0.6-1.3); Globulin 3.7 gm/dL (2.3-3.5); Glucose 165 mg/dL (74-106); Magnesium 2.4 mg/dL (1.6-2.6); Osmolality,Calculated 279 (275-295); Potassium 4.5 mMol/L (3.4-5.1); Sodium 134 mMol/L (136-145); eGFR 33 See Note
[2024-05-30 20:46] LABS: Troponin I 0.114 ng/mL (0.0-0.045)
[2024-05-30 22:48] LABS: Troponin I 0.113 ng/mL (0.0-0.045)
[2024-05-30] MEDS: PANTOPRAZOLE 40 MG TABLET PO (23:09)
--- NOTE | 2024-05-31 00:17 | PC.CC ---
Daina AUGUSTIN arranged transportation for CT with [facility] for 1000.
[2024-05-31 02:13] VITALS: BP 136/89; PULSE 83; RESP 18; TEMP 37; O2SAT 98
--- NOTE | 2024-05-31 02:47 | PC.SS ---
SS follow up note; CT was cancelled, SS contacted [facility] to update.
[2024-05-31] MEDS: cefTRIAXone/D5w 1gm IV premix 1 GM/50 ML BAG IV (03:07)
[2024-05-31] MEDS: AZITHROMYCIN INJ 500 MG in SODIUM CHLORIDE 0.9% 250 ML 250 ML 250 MG IV (03:29)
== END 2024-05-31 04:54 | disposition home or self-care (01) ==
PROVIDERS: Physician Assistant; Emergency Provider Emergency Medicine; PCP Family Medicine
DX: J18.9 Pneumonia, unspecified organism (principal); I11.0 Hypertensive heart disease with heart failure; I50.9 Heart failure, unspecified; E11.9 Type 2 diabetes mellitus without complications; Z95.1 Presence of aortocoronary bypass graft
CPT/HCPCS: 36415; 71046; 80053; 80307; 81001; 83735; 83880; 84484; 85025; 85610; 85730; 87400; 87811; 93005; 99284; J0456; J0696; J7050; A9270

== ENCOUNTER 2024-06-03 17:28 | Emergency (ER) | payer MEDICARE, MEDICAID, SELFPAY ==
[2024-06-03 17:49] VITALS: BP 126/84; PULSE 93; RESP 18; TEMP 37.3; O2SAT 98
--- NOTE | 2024-06-03 18:26 | EKG_ITS ---
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
--- NOTE | 2024-06-03 18:43 | EDRME_ITS ---
Rapid Medical Screening Exam RME Arrival date/time: 06/03/24 17:28 54M with history of recent CABG and DM (LLE amputation) presents to ED 1 week of cough, CP, and SOB, as well as some N/V. Patient states he was here recently and transferred to [facility]. He's been taking his ABX w/o improvement. SOB worsening. Chief Complaint: Chest Pain Vital signs: Vital Signs Temperature 99.1 F 06/03/24 17:49 Pulse Rate 93 06/03/24 17:49 Respiratory Rate 18 06/03/24 17:49 Blood Pressure 126/84 06/03/24 17:49 Pulse Oximetry (%) 98 06/03/24 17:49 Oxygen Delivery Method Room Air 06/03/24 17:49
--- NOTE | 2024-06-03 18:44 | XR_ITS ---
Examination: PA chest single view Technique: Upright PA chest single view Exam date and time: June 03, 2024 1901 hrs. Comparison May 30, 2024 Indications: Coughing congestion this week with pneumonia at the left base on chest film May 30, 2024 Findings: Again noted significant pneumonia left base Mild prominence left ventricle CABG Pleural thickening along the upper lateral right thoracic wall Impression: Significant pneumonia remains left base
[2024-06-03 19:05] LABS: Lactate (Lactic Acid) 0.7 mMol/L (0.4-2.0)
[2024-06-03 19:06] LABS: Basophils # (Auto) 0.1 Thou/mm3 (0.0-0.2); Basophils % (Auto) 1 % (0-2.5); Eosinophils # (Auto) 0.2 Thou/mm3 (0.0-0.5); Eosinophils % (Auto) 3 % (0-10); Hematocrit 34.6 % (41.0-53.0); Hemoglobin 11.6 g/dL (13.5-16.0); Immature Granulocytes % (Auto) 0 % (0-0); Immature Granulocytes Auto 0.01 Thou/mm3 (0.00-0.00); Lymphocytes # (Auto) 2.1 Thou/mm3 (1.0-4.8); Lymphocytes % (Auto) 28 % (10-50); Mean Corpuscular HGB Conc 33.5 g/dl (31.0-37.0); Mean Corpuscular Hemoglobin 30.7 pg (25.0-35.0); Mean Corpuscular Volume 92 fL (80-100); Monocytes # (Auto) 0.8 Thou/mm3 (0.0-0.8); Monocytes % (Auto) 11 % (0-12); Neutrophils # (Auto) 4.3 Thou/mm3 (1.8-7.7); Neutrophils % (Auto) 58 % (37-80); Nucleated Red Blood Cell % 0 /100 WBC (0); Platelet Count 276 Thou/mm3 (140-440); RDW Standard Deviation 51.4 fL (35.1-43.9); Red Blood Count 3.78 Miln/mm3 (4.50-5.90); White Blood Count 7.4 Thou/mm3 (3.8-10.6)
[2024-06-03 19:31] LABS: B-Type Natriuretic Peptide 166 pg/mL (0-100)
[2024-06-03 19:55] LABS: Alanine Aminotransferase < 7 U/L (10-49); Albumin, Serum 4.1 gm/dL (3.5-5.0); Albumin/Globulin Ratio 1.1 (1.2-2.2); Alkaline Phosphatase 140 U/L (46-116); Anion Gap 10 (7-16); Aspartate Amino Transferase 15 U/L (0-34); BUN/Creatinine Ratio 11 Ratio (12-20); Bilirubin,Total 0.5 mg/dL (0.3-1.2); Blood Urea Nitrogen 19 mg/dL (9-23); Calcium 9.3 mg/dL (8.3-10.6); Calcium (Corrected) 9.3 mg/dL (8.5-10.1); Carbon Dioxide 21.6 mMol/L (20.0-31.0); Chloride 106 mMol/L (98-107); Creatinine (Component) 1.7 mg/dL (0.6-1.3); Globulin 3.9 gm/dL (2.3-3.5); Glucose 116 mg/dL (74-106); Osmolality,Calculated 278 (275-295); Potassium 4.4 mMol/L (3.4-5.1); Procalcitonin 0.07 ng/ml (0.0-0.49); Sodium 138 mMol/L (136-145); eGFR 48 See Note
[2024-06-03 23:30] LABS: Troponin I 0.096 ng/mL (0.0-0.045)
[2024-06-03 23:54] VITALS: BP 123/78; PULSE 85; RESP 18; TEMP 36.8; O2SAT 99
[2024-06-04 01:42] VITALS: BP 132/83; PULSE 83; RESP 18; TEMP 36.6; O2SAT 97
--- NOTE | 2024-06-04 01:48 | PD.EDCHEST ---
ED Chest Pain RME/HPI General Chief Complaint: Chest Pain Stated Complaint: Shortness of breath with chest pain Arrival date/time: 06/03/24 17:28 Limitations: no limitations RME / HPI RME / HPI narrative: 06/03/24 17:28 54M with history of recent CABG and DM (LLE amputation) presents to ED 1 week of cough, CP, and SOB, as well as some N/V. Patient states he was here recently and transferred to [facility]. He's been taking his ABX w/o improvement. SOB worsening. Dr. Leos's Main ED Evaluation: 54yo male with a history of recent CABG May 09, 2024, HTN, HLD, DM presents to the ED for a chief complaint of chest pain x yesterday. Patient states he started having mid chest pain that radiates to his back yesterday morning at 0600. His pain worsens when he breathes. He reports associated intermittent shortness of breath, persistent cough, and a runny nose. He denies any fever, chills or any other associated symptoms. He states he was diagnosed with pneumonia last week and was prescribed Augmentin, but does not think it's working. No known allergies. The patient does not know what medications he is on otherwise and did not bring any of his paperwork with him. He does not know why he was transferred to [facility] on May 26 and there is no note from Dr. Maynard who saw the patient in transfer time. History of CHF, hypertension, diabetes, coronary artery disease status post CABG, high cholesterol NKDA PCP; Jonathan Walker, PAC, next appointment 1 week Related Data Home Medications ?Medication ?Instructions ?Recorded ?Confirmed atorvastatin 20 mg tablet 40 mg PO QDAY 03/17/24 05/26/24 empagliflozin 25 mg tablet 25 mg PO QDAY 03/17/24 05/26/24 (Jardiance) furosemide 20 mg tablet 20 mg PO QDAY 03/17/24 05/26/24 lisinopril 10 mg tablet 40 mg PO QDAY 03/17/24 05/26/24 metformin 500 mg tablet 500 mg PO QDAY 03/17/24 05/26/24 Held on 03/17/24. Instructions: Resume on 03/20/24. hold metformin. may resume 03/20/24 ascorbic acid (vitamin C) 500 mg 1 g PO QDAY 05/26/24 05/26/24 tablet (Vitamin C) clopidogrel 75 mg tablet 75 mg PO HS 05/26/24 05/26/24 ferrous sulfate 325 mg (65 mg 325 mg PO BID 05/26/24 05/26/24 iron) tablet (FeroSul) folic acid 1 mg tablet 1 mg PO QDAY 05/26/24 05/26/24 midodrine 10 mg tablet 10 mg PO TID 05/26/24 05/26/24 tramadol 50 mg tablet 50 mg PO HS 05/26/24 05/26/24 Previous Rx's ?Medication ?Instructions ?Recorded flash glucose scanning reader #1 ea 03/17/24 (Simple TitheStyle Yolanda 2 [place]) flash glucose sensor (FreeStyle #1 ea 03/17/24 Yolanda 2 Sensor kit) pen needle, diabetic 29 gauge #100 ea 03/17/24 amoxicillin 875 mg-potassium 1 tab PO BID pneumonia 10 days #20 05/31/24 clavulanate 125 mg tablet tabs azithromycin 500 mg tablet 500 mg PO QDAY 10 days #10 tabs 05/31/24 doxycycline hyclate 100 mg capsule 100 mg PO BID #20 caps 06/04/24 Allergies Allergy/AdvReac Type Severity Reaction Status Date / Time No Known Allergies Allergy Verified 06/03/24 17:32 Review of Systems Review of Systems Systems Reviewed: All systems reviewed, normal except as documented Past Medical History Past Medical History NEUROLOGIC: Positive Neurological Disorders and Peripheral Neuropathy; Negative Seizures CARDIAC: Positive Cardiac Disorders, Hypercholesterolemia and Hypertension; Negative Congestive Heart Failure, Edema or Cellulitis RESPIRATORY: Positive Pneumonia (05/2023); Negative Chronic Obstructive Pulmonary Disease (COPD), Asthma, Tuberculosis or Sleep Apnea GASTROINTESTINAL: Negative Gastrointestinal Disorders or Hepatitis GENITOURINARY: Negative Genitourinary Disorders or Renal Disease REPRODUCTIVE: Negative Breast Cancer MUSCULOSKELETAL: Positive Musculoskeletal Disorders and Fractures (right ankle fractures, screws intact) ENT: Positive Cataracts ENDOCRINE: Positive Endocrine Disorders and Diabetes Mellitus Type 2; Negative Diabetes Mellitus Type 1 HEMATOLOGIC: Negative Blood Disorders or Sickle Cell Disease OTHER HISTORY: Positive Shingles, Falls and Chicken Pox; Negative Hospitalization, Autoimmune Disease, Blood Transfusions, Blood Transfusion Reaction, Anesthesia Reactions, Chemotherapy, Radiation Therapy, MRSA, Measles, Mumps, Clostridium Difficile, Cancer or Breast Cancer Family History FAMILY HISTORY: Positive Family Cardiac Disorders, Family Gastrointestinal Problems and Family Surgery; Negative Family Psychiatric Problems, Family Respiratory Disorders, Family Cancer or Family Anesthesia Reaction Surgical History SURGICAL: Positive Amputation (right 3rd and 4th toes. 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 ED Exam General Limitations: Present no limitations General appearance: Present alert and in no apparent distress Head Head exam: Present atraumatic Eye Eye exam: Present normal appearance, PERRL and EOMI ENT ENT exam: Present normal exam, normal oropharynx and mucous membranes moist Neck Neck exam: Present normal inspection, full ROM and trachea midline Chest Chest inspection: Present normal inspection and symmetric chest wall rise Respiratory Respiratory exam: Present normal lung sounds bilaterally Cardiovascular Cardiovascular exam: Present regular rate, normal rhythm and normal heart sounds Abdominal Exam Abdominal exam: Present soft and normal bowel sounds Extremities Exam Extremities exam: Present full ROM and other (left BKA) Back Exam Back exam: Present full ROM and other (point tenderness to the left scapula) Neurological Exam Neurological exam: Present alert, oriented X3 and CN II-XII intact Psychiatric Psychiatric exam: Present normal affect and normal mood Skin Skin exam: Present warm, dry, intact and normal color Course Course Course Narrative: CXR is ordered for determining the etiology of chest pain. Quality Measures none Orders Category Date Time Status CT Screening NOW Care 06/04/24 02:00 Active EKG (ED ONLY) *Do not use* NOW Care 06/03/24 18:26 Completed IV [Insert IV] NOW Care 06/04/24 03:[address] angio chest Stat Exams 06/04/24 02:00 Taken EKG (ED Only) Stat Exams 06/03/24 18:26 Draft XR chest 1V portable Stat Exams 06/03/24 18:44 Completed B-Type Natriuretic Peptide Stat Lab 06/03/24 18:54 Completed CBC Stat Lab 06/03/24 18:54 Completed Comprehensive Metabolic Panel Stat Lab 06/03/24 18:54 Completed Lactate (Lactic Acid) Stat Lab 06/03/24 18:54 Completed Magnesium Stat Lab 06/03/24 18:54 Completed Procalcitonin Stat Lab 06/03/24 18:54 Completed Troponin I Stat Lab 06/03/24 18:54 Completed Troponin I Stat Lab 06/03/24 23:01 Completed Amoxicillin/Pot Clav 875 [Augmentin 875] Med 06/04/24 04:51 Discontinued 1 tab PO X1 ONE Doxycycline [Vibramycin] Med 06/04/24 04:51 Discontinued 100 mg PO X1 ONE Vital Signs Vital signs: Vital Signs Temperature 99.1 F 06/03/24 17:49 Pulse Rate 93 06/03/24 17:49 Respiratory Rate 18 06/03/24 17:49 Blood Pressure 126/84 06/03/24 17:49 Pulse Oximetry (%) 98 06/03/24 17:49 Oxygen Delivery Method Room Air 06/03/24 17:49 Procedures -ED EKG Interpretation #1: Date of EK06/03/24 Time of EK:32 Rate: 86 Interpretation: Interpreted by me Additional EKG comment: Sinus rhythm. First-degree AV block. Old lateral infarct, no ST elevations. Old lateral infarct. Chest Pain MDM Narrative MDM Narrative:: Scribe Attestation: 06/04/24 - Mary Landrum am scribing for and in the presence of Dr. Leos. 54-year-old male with history of high cholesterol, on Plavix, iron deficiency anemia, CHF, diabetes, status post recent CABG May 09, 2024 reporting back to the emergency department after second visit seen on May 26 with left back pain. Pain is similar today as it was on Thursday. The patient states he was transferred to [place] but does not know why and what the plan was. The patient has been on Augmentin for the last 10 days. No fevers at home. No exertional component. No lower extremity swelling of his [address] elevation or depression. 0230: Records are ordered. At this time we do not have IR here at this facility on the weekend. I suspect he has a worsening pleural effusion however differential diagnosis includes pneumonia, pericarditis, or possibly failed outpatient pneumonia. The patient is not hypoxic and otherwise does not have a fever so at this time I do not feel that he needs a tap. Will give [place]. Will await records to see what was recommended unable third. May consider changing antibiotics. The patient has a creatinine of 1.7 so concerned about me repeating the CAT scan since he just had one recently on May 26 but will consider depending on what [facility]'s ED records show. CURB score is 0. Patient is not hypoxic. 0541: Spoke with [facility]'s transfer center regarding consultation with Dr. Comer, the patient's cardiothoracic surgeon. Spoke with Dr. Barnett, who is on-call for Dr. Comer, who states the patient should have his pleural effusion drained by IR. They accept the patient for transfer. Patient data External records reviewed:: [facility] previous records (Per chart review, patient was seen here on 05/30/24 for dyspnea.) Clinical information provided by:: patient Social determinants that could affect healthcare access:: none Patient has the following chronic illnesses:: CABG, HTN, HLD, DM How is presenting disease/condition affected by chronic disease/condition?: exacerbated by Evaluation data The following diagnostics were reviewed and interpreted by me:: lab results, radiology exam(s) and EKG tracing(s) Lab and/or radiology exams considered but not ordered:: none Interpretation Summary: CBC is normal, Creatinine is 1.7, Lactic Acid is normal, Initial troponin is 0.100, repeat troponin is 0.096, BNP is 166, Procalcitonin is normal, according to my interpretation. [place] [facility] Report Signed Patient: LILIANA HOSKINS Record#: [id number] Birthdate: 1970 Age/Sex: 54 / M Location: [facility] Attending Dr: Ordering Physician: Pasquale Borden PA-C Date of Service: 06/03/24 Procedure(s): XR chest 1V portable Accession Number(s): [id number] cc: Caesar Peng MD; NO PRIMARY/FAMILY,PHYSICIAN; Pasquale Borden PA-C~ Examination: PA chest single view Technique: Upright PA chest single view Exam date and time: June 03, 2024 1901 hrs. Comparison May 30, 2024 Indications: Coughing congestion this week with pneumonia at the left base on chest film May 30, 2024 Findings: Again noted significant pneumonia left base Mild prominence left ventricle CABG Pleural thickening along the upper lateral right thoracic wall Impression: Significant pneumonia remains left base Dictated By: Caesar Peng MD Signed By: <Electronically signed by Caesar Peng MD in OV> 06/03/241920 [place] Preliminary Report Draft Patient: LILIANA HOSKINS Record#: [id number] Birthdate: 1970 Age/Sex: 54 / M Location: [facility] Attending Dr: Ordering Physician: Date of Service: Procedure(s): Accession Number(s): cc: ~ CT angiogram of the chest with intravenous contrast (axial sections with sagittal and coronal reformats) June 04, 2024 at 0346 hours Clinical History: Pneumonia , elevated trop. Technique:Helical axial sections with sagittal and coronal reformats of the chest were obtained with intravenous contrast. Iterative reconstruction technique was employed to reduce patient radiation exposure. 3D/MIP reconstructed images were also provided. Comparison: No prior study is available for comparison. Findings: There is no filling defect within the pulmonary artery divisions to suggest pulmonary thromboembolism. The mediastinum demonstrates no evidence of mass or lymphadenopathy. The thoracic aorta is unremarkable. There is a small complex pericardial effusion. No pneumothorax. Moderate left pleural effusion. Left lower lobe consolidation. Degenerative changes of the imaged portions of the spine.no acute fractures. Sternal wires. The visualized upper abdominal viscera are unremarkable. Status post CABG (GEE). Coronary arteries calcifications. Impression: 1. No CT evidence of pulmonary thromboembolism. 2. Left pleural effusion. 3. Left lower lobe pneumonia. 4. Coronary arteries calcifications. If acute myocardial infarction is clinically suspected consider correlation with troponin. 5. Small complex pericardial effusion, consider pericarditis in the differential diagnosis. Discussion Details: Results verbally communicated to : Dr. Whaley at 04:26 AM 06/04/2024 Report Electronically Signed By: Merlin Ca 06/04/2024 4:35:00 AM Medications / Prescriptions Medications or Prescriptions considered but not ordered:: none Medication administrations:: Medication Administration History Discontinued Medications Amoxicillin/Clavulanate Potassium (Amoxicillin/Pot Clav 875 Tablet) 1 tab PO X1 ONE Stop: 06/04/24 04:52 Last Admin: 06/04/24 05:06 Dose: 1 tab Documented By: ARABELLA Doxycycline Hyclate (Doxycycline 100 Mg Tablet) 100 mg PO X1 ONE Stop: 06/04/24 04:52 Last Admin: 06/04/24 05:06 Dose: 100 mg Documented By: LB see above, if any Consultations Consultation(s) initiated? (list below): No Diagnosis Chest Pain Differential Diagnosis: other (pneumonia, PE, pleural effusion) Most likely diagnosis given after review of the tests above:: see clinical impression below Admission Indicated Admission indicated?: not indicated Explain why admission is indicated or not indicated:: Patient requires a higher [id number]. Admission Request Was there a request for admission?: No Disposition Plan Disposition Plan: Transfer Discharge Plan Plan Patient Disposition: [facility] Disposition Comment: Accepted by Dr. Barnett, ER-ER transfer Patient condition on transfer: Stable Prescriptions/Referrals Prescriptions/Med Rec: New doxycycline hyclate 100 mg capsule 100 mg PO BID Qty: 20 0RF No Action metformin 500 mg Tablet 500 mg PO QDAY atorvastatin 20 mg Tablet 40 mg PO QDAY furosemide 20 mg Tablet 20 mg PO QDAY Jardiance 25 mg Tablet 25 mg PO QDAY lisinopril 10 mg tablet 40 mg PO QDAY (DME) pen needle, diabetic 29 gauge needle See Rx Instructions .Route Qty: 100 0RF Rx Instructions: As directed (DME) FreeStyle Yolanda 2 Sensor Kit See Rx Instructions .Route Qty: 1 0RF Rx Instructions: As directed (DME) FreeStyle Yolanda 2 [place] Misc See Rx Instructions .Route Qty: 1 0RF Rx Instructions: As directed ferrous sulfate [FeroSul] 325 mg (65 mg iron) tablet 325 mg PO BID ascorbic acid (vitamin C) [Vitamin C] 500 mg tablet 1 g PO QDAY tramadol 50 mg tablet 50 mg PO HS clopidogrel 75 mg tablet 75 mg PO HS midodrine 10 mg tablet 10 mg PO TID folic acid 1 mg tablet 1 mg PO QDAY amoxicillin-pot clavulanate 875-125 mg tablet 1 tab PO BID 10 Days Qty: 20 0RF azithromycin 500 mg tablet 500 mg PO QDAY 10 Days Qty: 10 0RF Referrals: No Primary/Family,Physician [Primary Care Provider] - In 1 week Problem List Clinical Impression: Pleural effusion on left, Left lower lobe pneumonia, History of diabetes mellitus Patient/Caregiver Discharge Instructions Education Materials: ED Pneumonia (Adult) Print Language: French Stand Alone Forms: Mya Award Info., Patient Portal Info Letter
--- NOTE | 2024-06-04 02:00 | XR_ITS ---
Examination: CTA chest with intravenous contrast 2-D reconstructions 3-D reconstructions, vascular Date and time of exam: June 04, 2024 0346 hrs. Indications: Chest pain shortness of breath left shoulder pain this week CTDI: vol (mGy) 11.5 DLP: (mGycm) 450 Technique: Multiple axial sections of the thorax have been obtained. 3 mm slice thickness, from below the hemidiaphragms to above the apices of the lungs. Mediastinal and lung density settings have been obtained. 2-D sagittal and coronal reconstructions. 3-D angiographic renderings, 3-D volume renderings, 3D post processing, vascular maximum intensity projections obtained. Contrast administered is 80 cc Isovue-300. Low dose protocols were performed. One or more of the following dose reduction techniques were used; automated exposure control, adjustment of the mA and/or KV according to patient size, use of iterative reconstruction technique. Findings: No thoracic aortic aneurysmal dilatation Pulmonary artery segments are not enlarged No pulmonary artery filling defects Minimal pericardial disease, most prominent over the lower anterior heart measuring up to 10 mm Prominent coronary artery calcification No paratracheal tracheobronchial or bronchopulmonary adenopathy Left base pneumonia with small to moderate left pleural effusion No visualized liver or splenic lesion No gallstones No pancreatic mass Impression: Negative for pulmonary artery emboli Left base pneumonia with small to moderate left pleural effusion
[2024-06-04 02:51] VITALS: BP 166/99; PULSE 80; RESP 18; TEMP 36.6; O2SAT 98
--- NOTE | 2024-06-04 04:03 | PC.NURSE ---
Pt in ct-scan.
--- NOTE | 2024-06-04 04:30 | PC.NURSE ---
Pt back from ct-scan, pain about the same and tolerable per pt.
[2024-06-04 04:31] VITALS: BP 154/108; PULSE 84; RESP 18; O2SAT 97
--- NOTE | 2024-06-04 04:37 | PRELIM_ITS ---
CT angiogram of the chest with intravenous contrast (axial sections with sagittal and coronal reformats) June 04, 2024 at 0346 hours Clinical History: Pneumonia , elevated trop. Technique:Helical axial sections with sagittal and coronal reformats of the chest were obtained with intravenous contrast. Iterative reconstruction technique was employed to reduce patient radiation exposure. 3D/MIP reconstructed images were also provided. Comparison: No prior study is available for comparison. Findings: There is no filling defect within the pulmonary artery divisions to suggest pulmonary thromboembolism. The mediastinum demonstrates no evidence of mass or lymphadenopathy. The thoracic aorta is unremarkable. There is a small complex pericardial effusion. No pneumothorax. Moderate left pleural effusion. Left lower lobe consolidation. Degenerative changes of the imaged portions of the spine.no acute fractures. Sternal wires. The visualized upper abdominal viscera are unremarkable. Status post CABG (GEE). Coronary arteries calcifications. Impression: 1. No CT evidence of pulmonary thromboembolism. 2. Left pleural effusion. 3. Left lower lobe pneumonia. 4. Coronary arteries calcifications. If acute myocardial infarction is clinically suspected consider correlation with troponin. 5. Small complex pericardial effusion, consider pericarditis in the differential diagnosis. Discussion Details: Results verbally communicated to : Dr. Whaley at 04:26 AM 06/04/2024 Report Electronically Signed By: Merlin Ca 06/04/2024 4:35:00 AM [EST]
[2024-06-04] MEDS: DOXYCYCLINE 100 MG TABLET PO (05:06)
[2024-06-04] MEDS: AMOXICILLIN/POT CLAV 875 TABLET 1 TAB PO (05:06)
--- NOTE | 2024-06-04 05:55 | PC.NURSE ---
PT ACCEPTED TO [facility] ER TO ER BY DR. ESTEVES.
[2024-06-04 06:41] VITALS: BP 137/85; PULSE 84; RESP 20; TEMP 36.8; O2SAT 97
[2024-06-04] MEDS: MORPHINE SULF INJ 10 MG/ML VIAL 4 MG IVP (06:45)
[2024-06-04] MEDS: PIPER/TAZO INJ 3.375 GM in SODIUM CHLORIDE 0.9% (Popper) 50 ML IV (06:46)
== END 2024-06-04 07:05 | disposition short-term general hospital (02) ==
PROVIDERS: Physician Assistant; Emergency Provider Emergency Medicine
DX: J18.9 Pneumonia, unspecified organism (principal); E11.9 Type 2 diabetes mellitus without complications; Z95.1 Presence of aortocoronary bypass graft; I11.0 Hypertensive heart disease with heart failure; I50.9 Heart failure, unspecified; E78.00 Pure hypercholesterolemia, unspecified; Z89.512 Acquired absence of left leg below knee
CPT/HCPCS: 36415; 71045; 71275; 80053; 83605; 83735; 83880; 84145; 84484; 85025; 93005; 96365; 96375; 99285; A4649; J2270; J2543; J7050; Q9967; A9270